=== PATIENT | female | born 1975 | race Caucasian/White ===

== ENCOUNTER 2021-02-28 13:50 | Outpatient (REF) | payer OTHER, SELFPAY ==
--- NOTE | ~2021-02-28 | MM_ITS ---
EXAMINATION: MM SCREENING DIGITAL BREAST TOMOSYNTHESIS, BILATERAL CLINICAL INFORMATION: Screening. Asymptomatic. The lifetime risk of breast cancer based on the Tyrer-Cuzick Model is 22%. COMPARISON: Mammography: 06/30/2019, 06/03/2018, 03/22/2017 TECHNIQUE: Digital breast tomosynthesis is performed in both the craniocaudal and mediolateral oblique views along with computer-aided detection (CAD). Synthesized 2D images are generated from the tomosynthesis. FINDINGS: There are scattered areas of fibroglandular density (ACR BI-RADS breast composition Category b). There are no significant masses, abnormal calcifications, or other abnormalities. No developing density. The axilla and skin contours are unremarkable. MM/MM tomosynthesis screening BI IMPRESSION: No mammographic evidence of malignancy. ASSESSMENT: BI-RADS 1: Negative RECOMMENDATION: 1. Routine annual mammography screening. 2. The lifetime risk of breast cancer based on the Tyrer-Cuzick Model is 22%. Additional annual adjunct screening with breast MRI may be of benefit in women with a risk score of 20% or greater. This patient's information was entered into a reminder system with a target due date for their next mammogram.
== END 2021-02-28 13:51 | disposition home or self-care (01) ==
LOC: HO.MAMMO 13:50
PROVIDERS: PCP Internal Medicine; Visit Provider Internal Medicine
DX: Z12.31 Encounter for screening mammogram for malignant neoplasm of breast (principal)
CPT/HCPCS: 77063; 77067

== ENCOUNTER 2022-06-10 11:08 | Outpatient (REF) | payer OTHER, SELFPAY ==
--- NOTE | ~2022-06-10 | MM_ITS ---
EXAMINATION: MM SCREENING DIGITAL BREAST TOMOSYNTHESIS, BILATERAL CLINICAL INFORMATION: Screening. Asymptomatic. The lifetime risk of breast cancer based on the Tyrer-Cuzick Model is 20%. COMPARISON: Mammography: 02/28/2021, 06/30/2019, 06/03/2018 TECHNIQUE: Digital breast tomosynthesis is performed in both the craniocaudal and mediolateral oblique views along with computer-aided detection (CAD). Synthesized 2D images are generated from the tomosynthesis. FINDINGS: There are scattered areas of fibroglandular density (ACR BI-RADS breast composition Category b). There are no significant masses, abnormal calcifications, or other abnormalities. Parenchymal pattern is similar to prior studies. There is no developing density or architectural abnormality. The axilla and skin contours are unremarkable. No significant changes. MM/MM tomosynthesis screening BI IMPRESSION: No mammographic evidence of malignancy. ASSESSMENT: BI-RADS 1: Negative RECOMMENDATION: Routine annual mammography screening. This patient's information was entered into a reminder system with a target due date for their next mammogram.
== END 2022-06-10 11:09 | disposition home or self-care (01) ==
LOC: HO.MAMMO 11:08
PROVIDERS: PCP Internal Medicine; Visit Provider Internal Medicine
DX: Z12.31 Encounter for screening mammogram for malignant neoplasm of breast (principal)
CPT/HCPCS: 77063; 77067

== ENCOUNTER 2023-02-11 14:21 | Outpatient (REF) | payer OTHER, MEDICAID, SELFPAY | END 2023-02-11 14:22 | disposition home or self-care (01) | LOC: HO.MRI 14:21 | PROVIDERS: PCP Internal Medicine; Visit Provider Psychiatry & Neurology Neurology | DX: G35 Multiple sclerosis (principal) | CPT/HCPCS: 70553; A9585 ==

== ENCOUNTER 2023-06-28 15:52 | Outpatient (REF) | payer OTHER, SELFPAY ==
[2023-06-28 17:33] LABS: Alanine Aminotransferase 9 U/L (0-31); Albumin Level 4.1 g/dL (3.5-5.0); Alkaline Phosphatase 64 U/L (39-117); Aspartate Amino Transferase 17 U/L (5-31); Bilirubin Direct 0.2 mg/dL (0.0-0.5); Bilirubin Total 0.4 mg/dL (0.0-1.0); Total Protein 7.4 g/dL (6.5-8.0)
[2023-06-29 07:13] LABS: HBS Num1 0.16 mIU/mL (0-7.99); HBc Num1 0.15 S/CO (0.00-0.79); HBsAGNum1 0.32 S/CO (0.00-0.99); Hepatitis B Core Antibody Nonreactive (Nonreactive); Hepatitis B Surface Antigen Negative (Negative); ~Hepatitis B Surface Antibody NONREACTIVE (Nonreactive)
== END 2023-06-28 15:53 | disposition home or self-care (01) ==
LOC: HO.LAB 15:52
PROVIDERS: PCP Internal Medicine; Visit Provider Psychiatry & Neurology Neurology
DX: G35 Multiple sclerosis (principal)
CPT/HCPCS: 36415; 80076; 86704; 86706; 87340

== ENCOUNTER 2023-10-06 14:26 | Outpatient (REF) | payer OTHER, SELFPAY | END 2023-10-06 14:27 | disposition home or self-care (01) | LOC: HO.MAMMO 14:26 | PROVIDERS: PCP Internal Medicine; Visit Provider Internal Medicine | DX: Z12.31 Encounter for screening mammogram for malignant neoplasm of breast (principal) | CPT/HCPCS: 77063; 77067 ==

== ENCOUNTER → 2023-10-06 14:30 | Outpatient (BNV) | payer OTHER, SELFPAY | PROVIDERS: PCP Internal Medicine; Visit Provider Radiology Diagnostic Radiology | DX: Z12.31 Encounter for screening mammogram for malignant neoplasm of breast (principal) | CPT/HCPCS: 77063; 77067 ==

== ENCOUNTER 2023-11-16 09:55 | Outpatient (AMB) | payer OTHER, SELFPAY ==
--- NOTE | 2023-11-16 10:31 | A.OFFPC_ITS ---
Vital Signs 11/16/23 10:35 Height 5 ft 3 in Weight 166 lb BMI 29.4 BP 112/80 Blood Pressure Location Lt brachial Position Sitting Pulse 77 Pulse Source Pulse Oximeter Pulse Oximetry (%) 99 Oxygen Delivery Method Room Air Intake Visit Reasons: Re establish care-see comments Intake Note: Pt is here today to re-est care: Pt concern today is bowel problem constipation Allergies No Known Allergies Allergy (Unverified 11/16/23 10:58) Medication List - Last Reconciled 11/16/23 by Carmen Irby MD norgestimate-ethinyl estradiol 0.18/0.215/0.25 mg-35 mcg (28) (Tri-Sprintec (28)) 1 tab PO DAILY ofatumumab (Kesimpta Pen) 20 mg subcut QWEEK Tobacco use date assessed: 11/16/23 Dental Screening Dental Screen Date: 11/16/23 Did you have a dental visit in the last 12 months?: Yes Did you have a dental problem in the last 6 months where you did not have access to dental care?: Yes Was dental information given to patient?: Patient has dentist HPI Re establish care-see comments HPI Details 47-year-old lady here today to [facility] care with as and for physical exam. She has multiple sclerosis currently on Kesimpta started 2 weeks ago and followed by Dr Eugenia Cook. Initially started with eye symptoms, optic neuritis, denies any gait imbalance or unsteadiness. She has been noted to have COPD as seen on pulmonary function test but is asymptomatic, never smoked cigarettes. She has been feeling well except for having intermittent episodes of constipation. Has tried increasing dietary fiber intake tried nwef-iii-ihbtrbu stool softeners which affords temporary relief. Denies any abdominal pain or bloating. She is up-to-date with her screening mammogram done earlier this year and is due for her cervical cancer screening, done [place] [address] Rae Williamson, who also prescribes her control pills. [facility] Medical History Acne Overweight (BMI 25.0-29.9) Intermittent constipation History of mastoiditis History of COPD Multiple sclerosis Scoliosis Family History Maternal Grandmother Mental health disorder Maternal Aunt Mental health disorder Mother Mental health disorder Social History Housing: Apartment e-Cigarette/Vaping Use: Never Used service: No Current occupational status: employed Cognitive needs: No Hearing needs: No Vision needs: No Questionnaire PHQ-9 Over the last 2 weeks, how often have you been bothered by any of the following problems? 1. Little interest or pleasure in doing things: not at all 2. Feeling down, depressed, or hopeless: not at all 3. Trouble falling or staying asleep, or sleeping too much: several days 4. Feeling tired or having little energy: several days 5. Poor appetite or overeating: not at all 6. Feeling bad about yourself - or that you are a failure or have let yourself or your family down: not at all 7. Trouble concentrating on things, such as reading the newspaper or watching television: not at all 8. Moving or speaking so slowly that other people could have noticed. Or the opposite - being so fidgety or restless that you have been moving around a lot more than usual: not at all 9. Thoughts that you would be better off or of hurting yourself in some way: not at all Total score: 2 Depression Screening Interpretation: Negative Depression Screening Done: Yes 23789 - PHQ-9 Billing: Yes Source: Developed by Drs. Alen Garcia, Sanjana Alvarez, John Greco and colleagues, with an educational jerry from [employer]. Thrive Questionnaire Date Thrive assessed: 11/16/23 I am a: Patient What is your living situation today?: I have a steady place to live Within the past 12 months, did the food you bought not last and you didn't have the money to get more?: Never true Within the past 12 months, did you worry whether your food would run out before you got money to buy more?: Never true Do you have trouble paying for medicines?: No Do you have trouble getting transportation to medical appointments?: No Do you have trouble paying your heating and electricity bill?: No Do you have trouble taking care of your child, family member or friend?: No Do you have trouble with day-to-day activities such as bathing, preparing meals, shopping, managing finances, etc.?: No Are you currently unemployed and looking for a job?: No Are you interested in more education?: No THRIVE Score: 0 AUDIT C Alcohol Use Questionnaire (AUDIT-C) 1. How often do you have a drink containing alcohol?: Never Total Score: 0 NILESH-7 AMB Questionnaire NILESH-7 Date NILESH - 7 assessed: 11/16/23 Feeling nervous, anxious, or on edge: 0 = Not at all Worrying too much about different things: 0 = Not at all Trouble relaxin = Not at all Being so restless that it is hard to sit still: 0 = Not at all Becoming easily annoyed or irritable: 0 = Not at all Feeling afraid as if something awful might happen: 0 = Not at all Source: Developed by Drs. Alen Garcia, Sanjana Alvarez, John Greco and colleagues, with an educational jerry from [employer]. NILESH-7 Assessment Billing NILESH-7 Assessment Tool: NILESH-7 Assessment 06110 Review of Systems Const Reports no additional complaints and Denies headache(s) Eyes Details: Currently followed by [facility] ENT Denies dizziness, Denies headache(s), Denies nasal congestion, Denies disequilibrium and Denies sore throat Card Denies chest pain, Denies rapid heart rate, Denies irregular heart rhythm, Denies lightheadedness and Denies dyspnea Resp Denies cough and Denies dyspnea GI Reports as per HPI, Denies abdominal pain, Denies melena, Denies hematochezia, Denies dyspepsia, Denies heartburn and Denies nausea Reports no additional complaints Skin/Breast Reports acne, Denies breast pain and Denies breast mass Neuro Denies dizziness, Denies headache(s) and Denies disequilibrium Psych Reports no additional complaints Endo Reports no additional complaints Samuel/Lymph Reports no additional complaints Aller/Immun Reports no additional complaints Physical exam (Primary Care) Vital Signs: Last Vital Signs Pulse 77 11/16/23 10:35 BP 112/80 11/16/23 10:35 Pulse Ox 99 11/16/23 10:35 Oxygen Delivery Method Room Air 11/16/23 10:35 BMI result Body Mass Index 29.4 Tobacco/Smoking Status: Tobacco use Status Tobacco use date assessed 11/16/23 11/16/23 10:41 e-Cigarette/Vaping Use Never Used 11/16/23 10:41 PHQ-9: PHQ-9 Score PHQ-9: Total score 2 11/16/23 11:21 Depression Screening Interpretation: Negative Thrive Assessment: Date of Thrive Assessment Date Thrive assessed 11/16/23 11/16/23 11:21 Const General: no acute distress and alert Orientation/consciousness: patient oriented x3 HENMT Head: Yes normocephalic Ears: external ears normal, TM's normal bilaterally and EAC's normal General nose exam: Normal external nose present and No nasal discharge present Face and sinus: Yes face symmetric Mouth: Normal oral and palatal mucosa present, oropharynx normal and moist mucous membranes Eyes General: appearance normal, both eyes and all related structures Eyelids: Yes eyelids normal Conjunctivae: conjunctivae normal Sclerae: sclerae normal Pupils: Equal, round and reactive pupils present EOM: EOMs intact bilaterally Neck Neck: Yes full ROM, Yes no lymphadenopathy and Yes supple Thyroid: Thyroid normal Chest Chest palpation & inspection: normal inspection of the chest Breast/axilla palpation: normal palpation of the breasts Resp Effort & Inspection: normal respiratory effort and able to speak in complete sentences Auscultation: clear to auscultation bilaterally Cardio Rate: regular rate Rhythm: regular rhythm Heart sounds: S1 normal heart sound present and S2 normal heart sound present GI Palpation (GI): Soft to palpation, nontender, no guarding and no masses Auscultation: normal bowel sounds General: Yes no CVA tenderness Back/Spine/Pelvis Back: no CVA tenderness and No back tenderness Skin Other: Acne noted on cheeks and chin area Neuro General: patient oriented x3, gait normal, moves all extremities, Normal light touch and pain sensation, no focal motor deficits and CN's II-XI intact bilaterally Cranial nerves: Yes Equal, round and reactive pupils present Cognition (Neuro): normal cognition Gait exam (Neuro): Normal gait present Motor exam (neuro): 5/5 motor strength present throughout Extrem General: Yes normal to inspection, Yes full ROM, Yes no joint enlargement, Yes no pedal edema and Yes normal gait Psych Appearance: grossly normal and well kempt Mental Status: mental status grossly normal Speech and movement: Normal speech and movement present Affect: normal affect Attitude: cooperative Thought process: Normal thought process present Thought content: Normal thought content present Assessment and Plan Assessment & Plan (1) Annual visit for general adult medical examination with abnormal findings: Code(s): Z00.01 - Encounter for general adult medical examination with abnormal findings Plan: Will check appropriate labs. Recommended dental visit every 6 months and regular eye exams, at least every 2 years, goes to [facility]. Take adequate calcium in diet and vitamin-D 3 at 2000 IU per cap once a day, in addition to weight-bearing exercises to help maintain good muscle tone and weight control. Instructed to do self-breast exam, and continue with yearly mammogram, . Patient will be calling and scheduling appointment with her OB for her routine Pap and pelvic exam. Referred to GI Clinic for her initial colonoscopy screening. Up-to-date with all her vaccines but does not want to get the booster, reminded to get yearly flu vaccine (2) Scoliosis: Code(s): M41.9 - Scoliosis, unspecified Qualifiers: Idiopathic scoliosis type: juvenile Scoliosis type: idiopathic Spinal region: unspecified Qualified Code(s): M41.119 - Juvenile idiopathic scoliosis, site unspecified (3) Intermittent constipation: Code(s): K59.09 - Other constipation Plan: Advised to stay active, increase dietary fiber intake in addition to adequate water intake. Try taking zkzi-xgl-sujxwzo stool softener such as docusate sodium 100 mg per capsule 1-2 capsules daily (4) Multiple sclerosis: Comment: ff'd by Dr Cook Code(s): G35 - Multiple sclerosis Plan: Has been started on Kesimpta by Dr. Cook (5) Colon cancer screening: Code(s): Z12.11 - Encounter for screening for malignant neoplasm of colon Plan: GI consult obtained for her initial colonoscopy screening (6) Skin cancer screening: Code(s): Z12.83 - Encounter for screening for malignant neoplasm of skin Plan: Referred to [facility] Orders: Orders Complete Blood Count Auto Diff Today E66.3 - Overweight, G35 - Multiple sclerosis, K59.09 - Other constipation, M41.9 - Scoliosis, unspecified, Z00.01 - Encounter for general adult medical examination with abnormal findings Basic Metabolic Panel Fasting Today E66.3 - Overweight, G35 - Multiple sclerosis, K59.09 - Other constipation, M41.9 - Scoliosis, unspecified, Z00.01 - Encounter for general adult medical examination with abnormal findings Alanine Aminotransferase Today E66.3 - Overweight, G35 - Multiple sclerosis, K59.09 - Other constipation, M41.9 - Scoliosis, unspecified, Z00.01 - Encounter for general adult medical examination with abnormal findings Lipid Panel Today E66.3 - Overweight, G35 - Multiple sclerosis, K59.09 - Other constipation, M41.9 - Scoliosis, unspecified, Z00.01 - Encounter for general adult medical examination with abnormal findings Vitamin D 25-OH Total Today E66.3 - Overweight, G35 - Multiple sclerosis, K59.09 - Other constipation, M41.9 - Scoliosis, unspecified, Z00.01 - Encounter for general adult medical examination with abnormal findings Aspartate Amino Transferase Today E66.3 - Overweight, G35 - Multiple sclerosis, K59.09 - Other constipation, M41.9 - Scoliosis, unspecified, Z00.01 - Encounter for general adult medical examination with abnormal findings TSH reflex Free T4 Today E66.3 - Overweight, G35 - Multiple sclerosis, K59.09 - Other constipation, M41.9 - Scoliosis, unspecified, Z00.01 - Encounter for general adult medical examination with abnormal findings Referrals Gastroenterology Referral K59.09 - Other constipation, Z12.11 - Encounter for screening for malignant neoplasm of colon Dermatology Referral L70.9 - Acne, unspecified, Z12.83 - Encounter for screening for malignant neoplasm of skin Coding Level of Care Code New Pt [facility] [id number]) Diagnoses Annual visit for general adult medical examination with abnormal findings Z00.01 Juvenile idiopathic scoliosis, unspecified spinal region M41.119 Idiopathic scoliosis type: juvenile Scoliosis type: idiopathic Spinal region: unspecified Intermittent constipation K59.09 Multiple sclerosis G35 Colon cancer screening Z12.11 Skin cancer screening Z12.83 Additional Codes NILESH-7 Assessment Billing - NILESH-7 Assessment Tool: NILESH-7 Assessment [id number] ([id number])
[2023-11-16 10:35] VITALS: BP 112/80; PULSE 77; O2SAT 99; BMI 29.4
== END 2023-11-16 11:18 | disposition home or self-care (01) ==
PROVIDERS: PCP Internal Medicine; Visit Provider Internal Medicine
DX: Z00.00 Encounter for general adult medical examination without abnormal findings (principal); M41.119 Juvenile idiopathic scoliosis, site unspecified; K59.09 Other constipation; G35 Multiple sclerosis; Z12.11 Encounter for screening for malignant neoplasm of colon; Z12.83 Encounter for screening for malignant neoplasm of skin
CPT/HCPCS: 99386

== ENCOUNTER 2023-11-16 11:46 | Outpatient (REF) | payer OTHER, SELFPAY ==
[2023-11-16 16:20] LABS: MANUAL DIFF FLAG NO
[2023-11-16 16:32] LABS: Basophils Absolute Auto 0.1 X10*3/uL (0.0-0.2); Basophils Percent Auto 1.3 % (0-2); Eosinophils Absolute Auto 0.2 X10*3/uL (0.0-0.4); Eosinophils Percent Auto 4.8 % (0-4); Hematocrit 41.6 % (37.0-47.0); Hemoglobin 13.3 g/dl (12.0-16.0); Imm Gran Abs Auto 0.01 X10*3/uL (0.00-0.03); Imm Gran Pct Auto 0.2 % (0.0-0.4); Lymphocytes Absolute Auto 1.1 X10*3/uL (1.2-4.9); Lymphocytes Percent Auto 22.8 % (20-40); Mean Corpuscular Hemoglobin 28.4 pg (27.0-33.0); Mean Corpuscular Volume 88.7 fL (80.0-98.0); Mean Platelet Volume 11.5 fL (9.4-12.3); Monocytes Absolute Auto 0.7 X10*3/uL (0.1-1.2); Monocytes Percent Auto 14.9 % (2-11); Neutrophils Absolute Auto 2.7 x10*3/uL (2.0-8.3); Platelet Count 202 X10*3/uL (160-400); Red Blood Count 4.69 X10*6/uL (4.20-5.50); Red Cell Distribution Width 13.2 % (11.0-16.0); White Blood Count 4.8 X10*3/uL (4.8-10.8)
[2023-11-16 16:40] LABS: Alanine Aminotransferase 12 U/L (0-31); Anion Gap 8 (12-20); Aspartate Amino Transferase 15 U/L (5-31); Blood Urea Nitrogen 19 mg/dL (9-16); Calcium 8.8 mg/dL (8.4-10.2); Carbon Dioxide 28 mmol/L (22-29); Chloride 107 mmol/L (96-108); Cholesterol 174 mg/dL (<200); Estimated Glomerular Filt Rate > 60; Glucose Fasting 77 mg/dL (60-99); HDL Cholesterol 61 mg/dL (>40); LDL Cholesterol Calculated 105 mg/dL (<100); Potassium 4.4 mmol/L (3.3-5.1); Sodium 139 mmol/L (135-145); Triglycerides 42 mg/dL (<150)
[2023-11-16 16:57] LABS: TSH reflex Free T4 1.24 uIU/mL (0.32-4.0); Vitamin D 25-OH Total 13.2 ng/mL (>30)
== END 2023-11-16 11:47 | disposition home or self-care (01) ==
LOC: HO.HMGCLDS 11:46
PROVIDERS: PCP Internal Medicine; Visit Provider Internal Medicine
DX: Z00.01 Encounter for general adult medical examination with abnormal findings (principal); K59.09 Other constipation; M41.9 Scoliosis, unspecified; E66.3 Overweight; G35 Multiple sclerosis
CPT/HCPCS: 36415; 80048; 80061; 82306; 84443; 84450; 84460; 85025

== ENCOUNTER 2024-07-16 15:15 | Outpatient (REF) | payer OTHER, SELFPAY ==
[2024-07-16] MEDS: gadobutroL 7.5 ML VIAL IVPUSH (16:08)
== END 2024-07-16 15:16 | disposition home or self-care (01) ==
LOC: HO.MRI 15:15
PROVIDERS: PCP Internal Medicine; Visit Provider Psychiatry & Neurology Neurology
DX: G35 Multiple sclerosis (principal)
CPT/HCPCS: 70553; A9585

== ENCOUNTER 2024-11-21 12:45 | Outpatient (AMB) | payer OTHER, SELFPAY ==
--- NOTE | 2024-11-21 13:10 | MHC.PC.OV ---
Vital Signs 11/21/24 13:11 Height 5 ft 3 in Weight 160 lb BMI 28.3 BP 116/78 Blood Pressure Location Lt brachial Position Sitting Pulse 84 Pulse Source Pulse Oximeter Pulse Oximetry (%) 97 Oxygen Delivery Method Room Air Intake Visit Reasons: Annual PE- see comments Allergies No Known Allergies Allergy (Verified 11/21/24 13:32) Medication List - Last Reconciled 11/21/24 by Carmen Irby MD cholecalciferol (vitamin D3) 25 mcg PO DAILY ofatumumab (Kesimpta Pen) 20 mg subcut QWEEK Tobacco use date assessed: 11/16/23 Dental Screening Dental Screen Date: 11/21/24 Did you have a dental visit in the last 12 months?: Yes Did you have a dental problem in the last 6 months where you did not have access to dental care?: No Was dental information given to patient?: Patient has dentist HPI Annual PE- see comments HPI Details 48-year-old lady with history multiple sclerosis currently followed by Neurology and on ofatumumab injected 20 mg subcutaneously every week, here today for her physical exam. She goes to [facility] for her routine Pap and pelvic exam, with last Pap smear done October 2020 showed negative findings. She is due now for her screening mammogram, last done a year ago in September. Has never had colon cancer screening done. She has been feeling well, with no complaints at present time. [facility] Medical History Vitamin D deficiency Overweight (BMI 25.0-29.9) History of mastoiditis History of COPD Multiple sclerosis Scoliosis Family History Maternal Grandmother Mental health disorder Maternal Aunt Mental health disorder Mother Mental health disorder Social History Housing: Apartment e-Cigarette/Vaping Use: Never Used service: No Current occupational status: employed Cognitive needs: No Hearing needs: No Vision needs: No Questionnaire PHQ-9 Over the last 2 weeks, how often have you been bothered by any of the following problems? 1. Little interest or pleasure in doing things: not at all 2. Feeling down, depressed, or hopeless: not at all 3. Trouble falling or staying asleep, or sleeping too much: not at all 4. Feeling tired or having little energy: not at all 5. Poor appetite or overeating: not at all 6. Feeling bad about yourself - or that you are a failure or have let yourself or your family down: not at all 7. Trouble concentrating on things, such as reading the newspaper or watching television: not at all 8. Moving or speaking so slowly that other people could have noticed. Or the opposite - being so fidgety or restless that you have been moving around a lot more than usual: not at all 9. Thoughts that you would be better off or of hurting yourself in some way: not at all Total score: 0 Depression Screening Interpretation: Negative Depression Screening Done: Yes 45873 - PHQ-9 Billing: Yes Source: Developed by Drs. Alen Garcia, Sanjana Alvarez, John Greco and colleagues, with an educational jerry from [employer]. Thrive Questionnaire Date Thrive assessed: 11/21/24 I am a: Patient What is your living situation today?: I have a steady place to live Within the past 12 months, did the food you bought not last and you didn't have the money to get more?: Never true Within the past 12 months, did you worry whether your food would run out before you got money to buy more?: Never true Do you have trouble paying for medicines?: No Do you have trouble getting transportation to medical appointments?: No Do you have trouble taking care of your child, family member or friend?: No Do you have trouble with day-to-day activities such as bathing, preparing meals, shopping, managing finances, etc.?: No Are you currently unemployed and looking for a job?: No Are you interested in more education?: No Please select the resources that you would like help with: None Currently or been in a relationship where the following occur: No concerns reported THRIVE Score: 0 AUDIT C Alcohol Use Questionnaire (AUDIT-C) 1. How often do you have a drink containing alcohol?: Monthly or less 2. How many drinks containing alcohol do you have on a typical day when you are drinking?: 1 or 2 3. How often do you have six or more drinks on one occasion?: Never Total Score: 1 Score Reviewed/Action Taken: Yes NILESH-7 AMB Questionnaire NILESH-7 Date NILESH - 7 assessed: 11/21/24 Feeling nervous, anxious, or on edge: 0 = Not at all Not being able to stop or control worryin = Not at all Worrying too much about different things: 0 = Not at all Trouble relaxin = Not at all Being so restless that it is hard to sit still: 0 = Not at all Becoming easily annoyed or irritable: 0 = Not at all Feeling afraid as if something awful might happen: 0 = Not at all Total NILESH-7 score (0-4 normal; 5-9 mild; 10-14 moderate; 15-21 severe): 0 Source: Developed by Drs. Alen Garcia, Sanjana Alvarez, John Greco and colleagues, with an educational jeryr from [employer]. NILESH-7 Assessment Billing NILESH-7 Assessment Tool: NILESH-7 Assessment 15055 Review of Systems Const Reports no additional complaints and Denies headache(s) Eyes Details: Currently followed by [facility] ENT Denies dizziness, Denies headache(s), Denies nasal congestion, Denies disequilibrium and Denies sore throat Card Denies chest pain, Denies rapid heart rate, Denies irregular heart rhythm, Denies lightheadedness and Denies dyspnea Resp Denies cough and Denies dyspnea GI Details: She already has an appointment for a pre colonoscopy screening in December at [facility] Denies abdominal pain, Denies melena, Denies hematochezia, Denies change in bowel habits, Denies dyspepsia, Denies heartburn and Denies nausea Details: Goes to [facility] for routine Pap and pelvic exam, last Pap smear was done in 2020 Reports no additional complaints Musc Reports no additional complaints Skin/Breast Reports acne, Denies breast pain and Denies breast mass Neuro Denies dizziness, Denies headache(s) and Denies disequilibrium Psych Reports no additional complaints Endo Reports no additional complaints Samuel/Lymph Reports no additional complaints Aller/Immun Reports no additional complaints Physical exam (Primary Care) Vital Signs: Last Vital Signs Pulse 84 11/21/24 13:11 BP 116/78 11/21/24 13:11 Pulse Ox 97 11/21/24 13:11 Oxygen Delivery Method Room Air 04/08/25 13:11 BMI result Body Mass Index 28.3 Tobacco/Smoking Status: Tobacco use Status Tobacco use date assessed 11/16/23 11/21/24 13:13 e-Cigarette/Vaping Use Never Used 11/21/24 13:13 PHQ-9: PHQ-9 Score PHQ-9: Total score 0 11/21/24 13:34 Depression Screening Interpretation: Negative Thrive Assessment: Date of Thrive Assessment Date Thrive assessed 11/21/24 11/21/24 13:13 Currently or been in a relationship where the following occur: No concerns reported Const General: no acute distress and alert Orientation/consciousness: patient oriented x3 HENMT Head: Yes normocephalic Ears: external ears normal, TM's normal bilaterally and EAC's normal General nose exam: Normal external nose present Face and sinus: Yes face symmetric Mouth: Normal oral and palatal mucosa present, oropharynx normal and moist mucous membranes Eyes General: appearance normal, both eyes and all related structures Neck Neck: Yes full ROM, Yes no lymphadenopathy and Yes supple Thyroid: Thyroid normal Chest Chest palpation & inspection: normal inspection of the chest Breast/axilla palpation: normal palpation of the breasts Resp Effort & Inspection: normal respiratory effort and able to speak in complete sentences Auscultation: clear to auscultation bilaterally Cardio Rate: regular rate Rhythm: regular rhythm Heart sounds: S1 normal heart sound present and S2 normal heart sound present GI Palpation (GI): Soft to palpation, nontender and no guarding Auscultation: normal bowel sounds General: Yes no CVA tenderness Back/Spine/Pelvis Back: no CVA tenderness and No back tenderness Skin Other: Acne noted on cheeks and chin area Neuro General: patient oriented x3, gait normal, moves all extremities, Normal light touch and pain sensation, no focal motor deficits and CN's II-XI intact bilaterally Cognition (Neuro): normal cognition Gait exam (Neuro): Normal gait present Motor exam (neuro): 5/5 motor strength present throughout Extrem General: Yes normal to inspection, Yes full ROM, Yes no joint enlargement, Yes no pedal edema and Yes normal gait Psych Appearance: grossly normal and well kempt Mental Status: mental status grossly normal Speech and movement: Normal speech and movement present Affect: normal affect Attitude: cooperative Thought process: Normal thought process present Thought content: Normal thought content present Coding Level of Care Code Est Pt Prev Care 40-64y(22821) Diagnoses Annual visit for general adult medical examination with abnormal findings Z00.01 Multiple sclerosis G35 Overweight (BMI 25.0-29.9) E66.3 Vitamin D deficiency E55.9 Additional Codes NILESH-7 Assessment Billing - NILESH-7 Assessment Tool: NILESH-7 Assessment 31166 ([id number]) PHQ-9 - 66355 - PHQ-9 Billing: Yes ([id number]) Assessment & Plan Assessment & Plan (1) Annual visit for general adult medical examination with abnormal findings: Code(s): Z00.01 - Encounter for general adult medical examination with abnormal findings Plan: Will check appropriate labs. Recommended dental visit every 6 months and regular eye exams, at least every 2 years. Stressed importance of following healthy diet and getting moderate intensity exercise at least 30 minutes 4 times a week.. Instructed to do self-breast exam, and recommended to get yearly mammogram, ordered today. Up-to-date with her vaccines. Has an appointment for a pre- Colonoscopy screening next month with [facility] GI (2) Multiple sclerosis: Comment: ff'd by Dr Cook Code(s): G35 - Multiple sclerosis Category: Medical Plan: Currently followed by Urology, stable and controlled on ofatumumab (3) Overweight (BMI 25.0-29.9): Code(s): E66.3 - Overweight Category: Medical Plan: Reinforced importance of following healthy diet and getting regular exercise (4) Vitamin D deficiency: Code(s): E55.9 - Vitamin D deficiency, unspecified Category: Medical Plan: Will check vitamin-D level, in the meantime continue with current dose of vitamin D3 1000 units daily Orders: Orders Hemoglobin and Hematocrit Today E55.9 - Vitamin D deficiency, unspecified, E66.3 - Overweight, G35 - Multiple sclerosis, Z00.01 - Encounter for general adult medical examination with abnormal findings, Z13.220 - Encounter for screening for lipoid disorders Lipid Panel Today E55.9 - Vitamin D deficiency, unspecified, E66.3 - Overweight, G35 - Multiple sclerosis, Z00.01 - Encounter for general adult medical examination with abnormal findings, Z13.220 - Encounter for screening for lipoid disorders Basic Metabolic Panel Fasting Today E55.9 - Vitamin D deficiency, unspecified, E66.3 - Overweight, G35 - Multiple sclerosis, Z00.01 - Encounter for general adult medical examination with abnormal findings, Z13.220 - Encounter for screening for lipoid disorders Aspartate Amino Transferase Today E55.9 - Vitamin D deficiency, unspecified, E66.3 - Overweight, G35 - Multiple sclerosis, Z00.01 - Encounter for general adult medical examination with abnormal findings, Z13.220 - Encounter for screening for lipoid disorders Alanine Aminotransferase Today E55.9 - Vitamin D deficiency, unspecified, E66.3 - Overweight, G35 - Multiple sclerosis, Z00.01 - Encounter for general adult medical examination with abnormal findings, Z13.220 - Encounter for screening for lipoid disorders Vitamin D 25-OH Total Today E55.9 - Vitamin D deficiency, unspecified, E66.3 - Overweight, G35 - Multiple sclerosis, Z00.01 - Encounter for general adult medical examination with abnormal findings, Z13.220 - Encounter for screening for lipoid disorders MM tomosynthesis screening BI Today Z12.31 - Encounter for screening mammogram for malignant neoplasm of breast
[2024-11-21 13:11] VITALS: BP 116/78; PULSE 84; O2SAT 97; BMI 28.3
== END 2024-11-21 14:07 | disposition home or self-care (01) ==
LOC: HO.HMCC 12:45
PROVIDERS: PCP Internal Medicine; Visit Provider Internal Medicine
DX: Z00.01 Encounter for general adult medical examination with abnormal findings (principal); G35 Multiple sclerosis; E66.3 Overweight; E55.9 Vitamin D deficiency, unspecified

== ENCOUNTER → 2024-11-21 12:45 | Outpatient (BNVA) | payer OTHER, SELFPAY | PROVIDERS: PCP Internal Medicine; Visit Provider Internal Medicine | DX: Z00.01 Encounter for general adult medical examination with abnormal findings (principal); G35 Multiple sclerosis; E66.3 Overweight; E55.9 Vitamin D deficiency, unspecified | CPT/HCPCS: 96127 ==

== ENCOUNTER 2024-12-26 15:32 | Outpatient (AMB) | payer OTHER, SELFPAY ==
--- NOTE | 2024-12-26 15:42 | MHC.OFFVIS ---
Vital Signs 12/26/24 15:47 Height 5 ft 3 in Weight 160 lb BMI 28.3 BP 102/76 Blood Pressure Location Rt brachial Position Sitting Pulse 82 Pulse Source Pulse Oximeter Pulse Oximetry (%) 96 Oxygen Delivery Method Room Air Intake Visit Reasons: Colonoscopy Screening Intake Note: NEW PATIENT for initial colo screening. CC; CO mild, intermittent constipation. Pt comments that she does not practice good habit of staying well hydrated. Pt denies any additional sx or concerns. No pertinent FMHx. Operations Research Group Manager Required: No Accompanied by: Self / Same As Patient Allergies No Known Allergies Allergy (Verified 12/26/24 15:46) HPI HPI Colonoscopy Screening: Details: 49 year old? female with past medical history of MS is here today for pre colonoscopy screening.? Patient was sent to us by her PCP.? This is her first colonoscopy screening.? Patient denies any gastrointestinal symptoms in the past or at present.? However patient does reports of being constipated. Patient admits that she does not drink water. Occasionally patient will take MiraLax. Denies any personal or family history of gastrointestinal disease, colon polyps, or CRC.? Denies history of difficulty with sedation or anesthesia in the past.? Negative for history of sleep apnea.? Denies any history of cardiac, renal, pulmonary, or hepatic disease.?? No history of infectious? diseases like hepatitis A, B, C, HIV or tuberculosis.? Patient is not on any anticoagulation [facility] Medical History Vitamin D deficiency Overweight (BMI 25.0-29.9) History of mastoiditis History of COPD Multiple sclerosis Scoliosis Surgical History H/O cystoscopy Family History Maternal Grandmother Mental health disorder Maternal Aunt Mental health disorder Mother Mental health disorder Social History Housing: Apartment e-Cigarette/Vaping Use: Never Used service: No Current occupational status: employed Cognitive needs: No Hearing needs: No Vision needs: No Review of Systems Const Denies weight gain and Denies weight loss ENT Reports no additional complaints, Denies dysphagia and Denies odynophagia Card Reports no additional complaints Resp Reports no additional complaints GI Denies abdominal pain, Denies belching, Denies melena, Denies bloating, Denies change in bowel habits, Reports constipation, Denies dysphagia, Denies excessive flatus, Denies dyspepsia, Denies heartburn, Denies diarrhea, Denies loose stools, Denies nausea, Denies odynophagia and Denies vomiting Reports no additional complaints Musc Reports no additional complaints Neuro Reports no additional complaints Psych Reports no additional complaints Endo Reports no additional complaints Physical Exam Vital Signs: Last Vital Signs Pulse 82 12/26/24 15:47 BP 102/76 12/26/24 15:47 Pulse Ox 96 12/26/24 15:47 Oxygen Delivery Method Room Air 12/26/24 15:47 BMI result Body Mass Index 28.3 Const General: healthy appearing, no acute distress and well developed Nutritional Appearance: well nourished Orientation/consciousness: patient oriented x3 Resp Effort & Inspection: normal respiratory effort, able to speak in complete sentences, no tracheal deviation and symmetric chest movement Auscultation: clear to auscultation bilaterally Cardio Rate: regular rate GI Inspection: Yes normal to inspection and No distended Palpation (GI): Soft to palpation, not firm, nontender and No hepatosplenomegaly present Auscultation: normal bowel sounds General: Yes no CVA tenderness Back/Spine/Pelvis Back: no CVA tenderness Skin General skin exam: elasticity normal, turgor normal and dry skin Neuro General: patient oriented x3 Psych Appearance: grossly normal Mental Status: mental status grossly normal Assessment & Plan Assessment & Plan (1) Colon cancer screening: Code(s): Z12.11 - Encounter for screening for malignant neoplasm of colon Plan Patient denies any GI, cardiac or respiratory symptoms.? Occasional constipation. Patient was encouraged to increase fluid intake. Patient reports that she does not drink any water. Will start her on stool softeners. Denies any issues with anesthesia in the past.? Denies any history of sleep apnea.? No history infectious diseases in the past or present.? Not on any anticoagulation therapy.? No family or personal history of colon cancer or polyps.? Patient denies melena, hematochezia, unintentional weight loss or ribbon like stools.? Discussed at length the pre-procedure,? prep, diet & medications as well as what to expect prior, during and after the procedure.?? Stressed the importance of good bowel prep.? Due to patient's constipation patient will take Dulcolax 1 week before procedure. Recommended the use of Vaseline or Calmoseptine OTC & baby wipes with bowel movements to promote comfort.? ?Patient verbalizes understanding and agrees to plan of care.? She was given the opportunity to ask questions and all questions answered.? We will see her after the procedure.? Medications: New bisacodyl (Dulcolax (bisacodyl)) Start taking 2 tablet every night 7 days before the procedure and 1 day before procedure take 4 tablets at noon time followed by MiraLax prep 10 mg (2 x 5 mg) PO BEDTIME 16 tabs 0RF Z12.11 - Encounter for screening for malignant neoplasm of colon docusate sodium 100 mg PO BEDTIME 90 caps 3RF K59.00 - Constipation, unspecified polyethylene glycol 3350 (Miralax) As directed by gastroenterology department at [facility] 238 grams PO ONCE 238 grams 0RF Z12.11 - Encounter for screening for malignant neoplasm of colon Coding Level of Care Code New Pt Level 3 (74196) Diagnoses Colon cancer screening Z12.11 Time Spent (min) 40 Comment 30 minutes spent with patient and additional 10 minutes spent reviewing her records
[2024-12-26 15:47] VITALS: BP 102/76; PULSE 82; O2SAT 96; BMI 28.3
== END 2024-12-26 18:12 ==
LOC: HO.HGI 15:33
PROVIDERS: PCP Internal Medicine; Visit Provider Nurse Practitioner Family
DX: Z01.818 Encounter for other preprocedural examination (principal); Z12.11 Encounter for screening for malignant neoplasm of colon
CPT/HCPCS: 99202

== ENCOUNTER → 2024-12-26 15:32 | Outpatient (BNVA) | payer OTHER, SELFPAY | PROVIDERS: PCP Internal Medicine; Visit Provider Nurse Practitioner Family ==

== ENCOUNTER 2025-04-27 08:55 | Outpatient (REF) | payer OTHER, SELFPAY | END 2025-04-27 08:56 | disposition home or self-care (01) | LOC: HO.MAMMO 08:55 | PROVIDERS: PCP Internal Medicine; Visit Provider Internal Medicine | DX: Z13.89 Encounter for screening for other disorder (principal) ==